=== PATIENT | male | born 1950 | race Caucasian/White ===

== ENCOUNTER → 2016-07-17 18:54 | Outpatient (CLI) | payer MEDICARE, BC ==
[~2016-07-17 18:54] MED LIST: ASPIRIN EC81 M1 PO; ELIQUIS2.5 MG PO; FLOMAX0.4 MG PO; HYDROCODONE-APA1 TAB PO; LIPITOR80 MG PO; VOLTAREN75 MG PO
[2016-08-26 11:26] VITALS: BMI 34.7
== END | disposition home or self-care (01) ==
LOC: D.LABREF 18:54
DX: M16.12 Unilateral primary osteoarthritis, left hip (principal); Z11.8 Encounter for screening for other infectious and parasitic diseases

== ENCOUNTER 2016-08-26 06:30 | Inpatient (IN) | payer MEDICARE, BC ==
[2016-08-22 09:08] LABS: BASOPHILS 0.3 % (0.0-2.0); EOSINOPHILS 4.1 % (0-7); HEMATOCRIT 42.3 % (42.0-54.0); LYMPHOCYTES 26.7 % (15-50); MCH 30.9 pg (26.0-34.0); MCHC 33.1 g/dL (31.0-37.0); MCV 93.4 fL (80.0-100.0); MEAN PLATELET VOLUME 10.3 fL (7.4-10.4); MONOCYTES 9.4 % (2-11); NEUTROPHILS 59.5 % (40-80); PLATELET COUNT 210 10x3/uL (130-400); RBC 4.53 10x6/uL (4.20-6.10); RDW 14.4 % (11.5-14.5); WBC 6.1 10x3/uL (4.8-10.8)
[2016-08-22 09:10] LABS: APPEARANCE CLEAR (CLEAR); BILIRUBIN NEGATIVE (NEGATIVE); COLOR YELLOW (YELLOW); GLUCOSE NEGATIVE (NEGATIVE); KETONE NEGATIVE (NEGATIVE); LEUKOCYTE ESTERASE NEGATIVE (NEGATIVE); NITRITE NEGATIVE (NEGATIVE); PROTEIN NEGATIVE (NEGATIVE); UROBILINOGEN NORMAL (NORMAL)
[2016-08-22 09:16] LABS: APTT 27.7 SECONDS (22.8-39.4); INR 0.98 (0.85-1.17); PROTIME 12.8 SECONDS (11.6-15.0)
[2016-08-22 09:17] LABS: CALC OSMOLALITY 288 mosm/kg (275-300); CALCIUM 9.1 mg/dL (8.5-10.1); CARBON DIOXIDE 28.8 mmol/L (21.0-32.0); CHLORIDE - SERUM 107 mmol/L (98-107); CREATININE - SERUM 0.9 mg/dL (0.6-1.3); GLUCOSE 128 mg/dL (74-106); POTASSIUM - SERUM 4.6 mmol/L (3.5-5.1); SODIUM 143 mmol/L (136-145); UREA NITROGEN 19 mg/dL (7-18); eGFR NON AFRICAN AMERICAN 90 mL/min (90-120)
[~2016-08-26 06:30] MED LIST changes: -ELIQUIS2.5 MG PO; -HYDROCODONE-APA1 TAB PO
[2016-08-27 06:04] LABS: HEMATOCRIT 39.6 % (42.0-54.0); HEMOGLOBIN 12.9 g/dL (13.5-17.5); MCH 30.6 pg (26.0-34.0); MCHC 32.6 g/dL (31.0-37.0); MCV 93.8 fL (80.0-100.0); MEAN PLATELET VOLUME 10.5 fL (7.4-10.4); RBC 4.22 10x6/uL (4.20-6.10); RDW 14.6 % (11.5-14.5)
[2016-08-28 05:43] LABS: HEMATOCRIT 34.5 % (42.0-54.0); HEMOGLOBIN 11.4 g/dL (13.5-17.5); MCV 93.8 fL (80.0-100.0); MEAN PLATELET VOLUME 10.5 fL (7.4-10.4); RBC 3.68 10x6/uL (4.20-6.10); RDW 14.3 % (11.5-14.5); WBC 8.7 10x3/uL (4.8-10.8)
[2016-08-28] MEDS ORDERED: ELIQUIS2.5 MG PO (08:03)
[2016-08-28] MEDS ORDERED: HYDROCODONE-APA1 TAB PO (08:03)
== END 2016-08-28 15:27 | disposition home health service (06) | DRG 470 ==
LOC: D.SDCHOLD 06:30 → D.MS 11:01
PROVIDERS: ADMIT Orthopaedic Surgery
PROC: 0SRB0JZ Replacement of Left Hip Joint with Synthetic Substitute, Open Approach (ICD-10-PCS; principal; 2016-08-26)
DX: M16.12 Unilateral primary osteoarthritis, left hip (principal); I25.10 Atherosclerotic heart disease of native coronary artery without angina pectoris; Z95.1 Presence of aortocoronary bypass graft; Z87.891 Personal history of nicotine dependence